=== PATIENT | male | born 1955 | race Caucasian/White ===

== ENCOUNTER 2016-08-06 09:34 | Emergency (ER) | payer OTHER ==
[~2016-08-06] VITALS: Ht 175.3 cm; Wt 135.0 kg
[~2016-08-06 09:34] MED LIST: BACTRIM DS1 TAB PO; CALCIUM CHEWS PO; CALCIUM500 M3 PO; ENTERIC COATED325 MG PO; GLIPIZIDE5 MG PO; HUMULIN N1 ML SC; HUMULIN R1 M1 SC; HYDROCO/APAP1 T10 PO; METFORMIN500 MG PO; MOTRIN200 MG PO; PERCOCET 10/31 COMBO PO; PHENERGAN IN25 MG/ML IM; PRILOSEC20 MG PO; ROCEPHIN 1 GM1 GM IV; ROCEPHIN10 GM IV; TYLENOL325 MG PO; VANCOMYCIN1000 MG IV; VICODIN ES1 TA1 PO
[2016-08-06 10:01] LABS: HEMATOCRIT 35.5 % (39.0-50.0); IMMATURE GRANULOCYTES 0.3 % (0.0-1.0); MEAN CELL VOLUME 85.1 fL CALC (80.0-100.0); MEAN CORPUSCULAR HGB 26.4 pG CALC (26.0-32.0); NEUT# 4.43 thou/uL (1.82-7.42); RED BLOOD COUNT 4.17 mill/uL (4.70-6.10); RED CELL DISTRI WIDTH 17.2 % (11.5-15.5)
[2016-08-06 10:16] LABS: PROTHROMBIN TIME 10.3 SECONDS (9.0-12.5)
[2016-08-06 10:19] LABS: ALBUMIN 3.7 g/dL (3.2-5.0); ALKALINE PHOSPHATASE 100 u/l (38-126); ANION GAP 15 (6-22 (CALC)); BILIRUBIN, TOTAL 0.2 mg/dL (0.0-1.4); BUN 12 mg/dL (8-23); BUN/CREATININE RATIO 18 (12-20 (CALC)); CALCIUM 9.4 mg/dL (8.4-10.2); CARBON DIOXIDE 29 mmol/l (22-30); CHLORIDE 102 mmol/l (95-108); CREATININE 0.6 mg/dL (0.7-1.3); GFR > 60 ML/MIN (>=60 (CALC)); GFR FOR AFR.AMER. > 60 ML/MIN (>=60 (CALC)); GLUCOSE 157 mg/dL (82-115); POTASSIUM 4.3 mmol/l (3.5-5.1); SGOT/AST 22 u/l (19-48); SGPT/ALT 32 u/l (11-66); SODIUM 142 mmol/l (137-146); TOTAL PROTEIN 7.6 g/dL (6.3-8.2)
[2016-08-06 10:30] LABS: URINE BILIRUBIN - DIPSTICK NEGATIVE (NEGATIVE); URINE BLOOD DIPSTICK LARGE (NEGATIVE); URINE GLUCOSE - DIPSTICK NEGATIVE (NEGATIVE); URINE KETONE NEGATIVE (NEGATIVE); URINE PH 5.5 (4.5-8.0); URINE PROTEIN - DIPSTICK 100 mg/dL (NEG-TRACE); URINE SPECIFIC GRAVITY 1.025; URINE UROBILINOGEN - DIPSTICK 0.2 E.U./dL (0.2)
[2016-08-06 10:30] LABS: MYOGLOBIN 18 ng/mL (0 - 121)
[2016-08-06 10:52] LABS: URINE CLARITY CLOUDY; URINE COLOR DK. YELLOW; URINE LEUK ESTERASE MODERATE (NEGATIVE); URINE NITRITE - DIPSTICK POSITIVE (Negative)
[2016-08-06 10:53] LABS: URINE EPITHELIAL CELLS MODERATE EPI/hpf (0-FEW); URINE RBC 25-50 RBC/hpf (0-5)
[2016-08-06 10:54] LABS: URINE BACTERIA MANY hpf
[2016-08-06 12:11] VITALS: BP 178/82
== END 2016-08-06 12:13 | disposition short-term general hospital (02) | DRG 66 ==
LOC: ED 09:34
PROVIDERS: Emergency Medicine
DX: I63.9 Cerebral infarction, unspecified (principal); H53.47 Heteronymous bilateral field defects; I10 Essential (primary) hypertension; R29.810 Facial weakness; E11.9 Type 2 diabetes mellitus without complications; R94.31 Abnormal electrocardiogram [ECG] [EKG]